=== PATIENT | female | born 1975 | race Caucasian/White ===

== ENCOUNTER → 2016-08-07 | Outpatient (CLI) | payer BC ==
[~2016-08-07] MED LIST: AMOX875T47 PO
[2016-08-07 14:04] VITALS: BP 114/70
--- NOTE | 2016-08-07 14:04 | Urgent Care T Sheet Gen (E) ---
Intake General Temperature (Fahrenheit): 98.3 Pulse: 63 Blood Pressure Systolic: 114 Blood Pressure Diastolic: 70 Respirations: 20 SPO2: 99 Description of Symptoms Patient presents with nasal congestion, frontal headache, chest congestion and cough since Thursday. States the cough is worse at night. No fever. Been using essential oils without improvement. History of Present Illness Home Meds Active Scripts Amoxicillin (Amoxil)875 Mg [id number] Mg PO BID #20 TAB Prov:GERARDO GARCIA 11/05/15 Respiratory Constitutional Symptoms: No syptoms reported EENTM: Nose Congestion Throat pain Respiratory: Cough Short of breathNo Wheezing Cardiovascular: No symptoms reported Neurological: Headache All Other Systems Reviewed Remaining Systems: All other systems reviewed with negative findings Physical Exam Physical Exam General Appearance: WD/WN No apparent distress Eyes, Ears, Nose, Throat Ex: TMs normal (air fluid bubbles) Pharynx normal ( cobblestone appearance) Other (clear, thin nasal drainage.) Neck Exam: SuppleNo Lymphadenopathy Respiratory Exam: Lungs clear Normal breath sounds Cardiovascular Exam: Regular rate, rhythm Departure Urgent Care Impression Impression: Primary Impression: URI (upper respiratory infection) Qualified Code: J00 - Acute nasopharyngitis [common cold] Departure Disposition: HOME OR SELF-CARE Condition: Stable Additional Instructions: Patient appears to have a viral URI Suggested she treat her symptoms with Mucinex or other OTC cold meds. If no better by Thursday, she may start the Augmentin I sent home with her Rest. Fluids Return as needed Patient understands DC instructions. All questions were answered. End of report . GERARDO GARCIA Aug 07, 2016 14:04
== END ==
LOC: MHUC 10:04
PROVIDERS: ATTEND Physician Assistant
DX: J00 Acute nasopharyngitis [common cold] (principal)
CPT/HCPCS: 99213